=== PATIENT | female | born 1990 | race Caucasian/White ===

== ENCOUNTER → 2020-07-14 10:51 | Outpatient (BNVA) | payer OTHER, SELFPAY | PROVIDERS: PCP Nurse Practitioner Family; Visit Provider Obstetrics & Gynecology | DX: Z30.9 Encounter for contraceptive management, unspecified (principal) | CPT/HCPCS: 81025 ==

== ENCOUNTER → 2021-10-09 14:45 | Outpatient (BNVA) | payer OTHER, SELFPAY | PROVIDERS: Visit Provider Family Medicine | DX: Z20.822 Contact with and (suspected) exposure to COVID-19 (principal) | CPT/HCPCS: 87635 ==

== ENCOUNTER 2022-06-20 15:39 | Emergency (ER) | payer OTHER, SELFPAY ==
[2022-06-20 15:44] VITALS: BP 136/83; PULSE 100; RESP 18; TEMP 36.5; O2SAT 96; BMI 33.3
--- NOTE | 2022-06-20 16:51 | W.ED.HA ---
HPI - Headache General: Chief Complaint: Headache Stated Complaint: migraine Time Seen by Provider: 06/20/22 15:53 Source: patient Mode of arrival: ambulatory Limitations: no limitations History of Present Illness: [id number] female who has a history headache states she woke up this morning with a migraine headache. She states it feels like her previous migraines she did take her medicine at home to get any relief from this headache. States she does have photophobia along with photophobia rates her headache an 8 out of 10 it was not sudden onset denies any fevers denies any vomiting or diarrhea has had some nausea with it. Associated symptoms: Deny chest pain, fever(s), nausea, rash or vomiting Review of Systems Const: Denies: fever(s), chills, body aches or change in appetite Eyes: Denies: blurry vision or eye discomfort ENMT: Denies: throat pain or dental pain Card: Denies: chest pain Resp: Denies: dyspnea GI: Denies: abdominal pain, nausea, vomiting or diarrhea : Denies: dysuria Musc: Denies: neck pain or back pain Skin/Breast: Denies: rash Neuro: Reports: headache(s) Psych: Denies: depression Levon/Lymph: Denies: easy bruising All/Imm: Denies: urticaria PFSH ED PFSH: Medical History Migraine Surgical History H/O section x2 Family History Mother Thyroid condition Sister Thyroid condition Denies family history of Colon cancer Ovarian cancer Diabetes Clotting disorder Hyperlipidemia Breast cancer Anesthesia complication Bleeding disorder Hypertension Uterine cancer Stroke Social History Smoking and tobacco status: never smoked Alcohol intake: current Alcohol intake frequency: holidays/special occasions only Alcohol type: wine Female Reproductive History: Date of last menstrual period: 06/20/22 Physical Exam Const: COMMON NORMALS: no acute distress, patient oriented x3 and healthy appearing HENMT: COMMON NORMALS: normocephalic and atraumatic HEAD & SCALP: normocephalic and atraumatic Eye: COMMON NORMALS: Equal, round and reactive pupils present and EOMs intact bilaterally PUPIL: Yes Equal, round and reactive pupils present Neck/C-Spine: COMMON NORMALS: full ROM and supple Chest: COMMONS NORMALS: normal inspection of the chest and normal palpation of entire chest wall Resp: COMMON NORMALS: normal respiratory effort, No retractions, No use of accessory muscles and clear to auscultation bilaterally AUSCULTATION: clear to auscultation bilaterally Cardio: COMMON NORMALS: regular rate, regular rhythm and No murmurs present (Cardio) RATE: regular rate RHYTHM: regular rhythm GI: COMMON NORMALS: Normal to inspection, nondistended, normoactive bowel sounds present, Soft to palpation, non-tender and no masses PALPATION: Yes Soft to palpation Extremity: COMMON NORMALS: normal to inspection and full ROM Neuro: COMMON NORMALS: patient oriented x3, moves all extremities and no focal motor deficits Psych: COMMON NORMALS: mental status grossly normal, Normal thought process present and cooperative THOUGHT PROCESS: Normal thought process present Skin: COMMON NORMALS: no rashes or lesions noted and no wounds GENERAL SKIN EXAM: no rashes or lesions noted Course Vital Signs: Vital signs: Vital Signs Temperature 97.7 F 06/20/22 15:44 Pulse Rate 100 06/20/22 15:44 Respiratory Rate 18 06/20/22 15:44 Blood Pressure 136/83 06/20/22 15:44 Pulse Oximetry 96 06/20/22 15:44 Oxygen Delivery Me thod 06/20/22 15:44 MDM - Headache Medical Decision Making Patient presents here with headache consistent with a migraine headache she feels much improved here after headache cocktail she has no signs of meningitis subarachnoid hemorrhage she is stable for discharge she is to follow-up and return if worsening. Discharge Plan Discharge Patient Disposition: Home Clinical Impression: Migraine Condition: Stable Prescriptions: No Action Nexplanon 68 mg implant subdermal rizatriptan 5 mg tablet See Rx Instructions PO .COMPLEX Qty: 20 3RF Rx Instructions: take 1 tablet at onset of headache; if no relief, may repeat 1 tablet after at least 2 hrs PO venlafaxine 37.5 mg tablet 37.5 mg PO DAILY Qty: 90 1RF Rx Instructions: may increase to BID after 2-3 weeks naproxen 375 mg tablet 375 mg PO BID PRN (Reason: pain) Qty: 30 0RF Discharge Orders: Discharge ED (Routine); Ordered 06/20/22 Ordered By: Timoteo Deal Referrals: Magdy George BROADCAST PRODUCER [Primary Care Provider] - Discharge Diet: Advance as tolerated Discharge Activity: Resume usual activity Patient Instructions: Migraine Headache (ED) Coding Level of Care Code ED Project Construction Manager for Chg Fwd Exam Comprehensive
[2022-06-20] MEDS: diphenhydrAMINE 50 mg/mL SDV 1mL IVP (17:17)
[2022-06-20] MEDS: metoclopramide 5 mg/mL SDV 2 mL 10 MG IVP (17:17)
[2022-06-20] MEDS: ketorolac 30 mg/mL INJ IVP (17:17)
[2022-06-20 17:28] VITALS: BP 125/85; PULSE 89; O2SAT 99
[2022-06-20 18:13] VITALS: BP 123/71; PULSE 69; O2SAT 98
[2022-06-20 18:30] VITALS: PULSE 69; O2SAT 98
== END 2022-06-20 18:31 | disposition home or self-care (01) ==
PROVIDERS: Emergency Provider Emergency Medicine; PCP Clinical Nurse Specialist Adult Health
DX: G43.909 Migraine, unspecified, not intractable, without status migrainosus (principal)
CPT/HCPCS: 96374; 96375; 99284; J1200; J1885; J2765

== ENCOUNTER → 2023-06-23 08:15 | Outpatient (BNVA) | payer OTHER, SELFPAY | PROVIDERS: PCP Clinical Nurse Specialist Adult Health; Visit Provider Obstetrics & Gynecology | DX: Z30.9 Encounter for contraceptive management, unspecified (principal) | CPT/HCPCS: 81025 ==

== ENCOUNTER → 2023-08-15 12:23 | Outpatient (BNVA) | payer OTHER, SELFPAY | PROVIDERS: PCP Clinical Nurse Specialist Adult Health; Visit Provider Clinical Nurse Specialist Adult Health | DX: E66.9 Obesity, unspecified (principal) | CPT/HCPCS: 84436; 84443; 84481 ==